=== PATIENT | female | born 1975 | race Caucasian/White ===

== ENCOUNTER 2018-01-03 16:59 | Emergency (ER) | payer OTHER ==
[2018-01-03 17:05] VITALS: BMI 32.5
--- NOTE | 2018-01-03 17:20 | ED PDOC ---
Arrival/HPI - General Chief Complaint: Shortness Of Breath Time Seen by Provider: 01/03/18 17:03 Historian: Patient - History of Present Illness Narrative History of Present Illness (Text): 01/03/18 17:21 42 yo F w/ PMH of DM and high cholesterol presents c/o intermittent L sided CP, described as a pressure sensation, which began 3 days ago while she was walking up the stairs associated with palpitations and dyspnea, reports that her symptoms lasted for 15 mins and then resolved on their own. She adds that the CP recurs with exertion, such as prolonged walking. She states that she called her pmd regarding her symptoms, was advised to go to the ER. Reports having a normal stress test and echo 4 years ago done in this hospital. Denies any fever, chills, URI, SOB, N/V, back pain, abdominal pain, radiation, syncope, dizziness, headache, leg pain/swelling, recent travel. PMD Eva Cardio none Past Medical History - Infectious Disease Hx of Infectious Diseases: None - Cardiac Hx Hypertension: Yes - Endocrine/Metabolic Hx Diabetes Mellitus Type 2: Yes - Psychiatric Hx Substance Use: No - Anesthesia Hx Anesthesia: No Family/Social History Family/Social History: Diabetes, CAD/HI Smoking Status: Never Smoked Hx Alcohol Use: No Hx Substance Use: No Allergies/Home Meds Allergies/Adverse Reactions: Allergies No Known Allergies Allergy (Verified 01/13/14 12:02) Home Medications: Home Meds Medication Instructions Recorded Confirmed Atorvastatin [Lipitor] 1 tab PO HS 01/03/18 01/03/18 Carisoprodol [Soma] 1 tab PO BID PRN 01/03/18 01/03/18 Cetirizine HCl [Zyrtec] 1 tab PO DAILY 01/03/18 01/03/18 DULoxetine [Cymbalta] 1 tab PO HS 01/03/18 01/03/18 Ergocalciferol [Drisdol 50,000 1 cap PO Q7D 01/03/18 01/03/18 Intl Units Cap] Fenofibrate [Tricor] 1 tab PO DAILY 01/03/18 01/03/18 Gemfibrozil [Lopid] 1 tab PO BID 01/03/18 01/03/18 Glimepiride [Amaryl] 1 tab PO BID 01/03/18 01/03/18 Metformin HCl [Glucophage] 1 tab PO BID 01/03/18 01/03/18 Pantoprazole Sodium [Protonix] 1 tab PO DAILY 01/03/18 01/03/18 Zolpidem [Ambien] 1 tab PO HS PRN 01/03/18 01/03/18 metFORMIN [glucOPHAGE] 1 tab PO DAILY 01/03/18 01/03/18 rOPINIRole [Requip] 1 tab PO DAILY 01/03/18 01/03/18 Review of Systems - Review of Systems Constitutional: absent: Fatigue, Weight Change, Fevers Respiratory: absent: SOB, Cough Cardiovascular: Chest Pain, Palpitations. absent: Edema, Syncope Gastrointestinal: absent: Abdominal Pain, Diarrhea, Vomiting Genitourinary Female: absent: Dysuria, Frequency, Hematuria Musculoskeletal: absent: Arthralgias, Back Pain Skin: absent: Rash, Pruritis, Skin Lesions Neurological: absent: Headache, Dizziness Physical Exam Appearance: Positive for: Well-Appearing, Non-Toxic, Comfortable Pain Distress: None Mental Status: Positive for: Alert and Oriented X 3 - Systems Exam Head: Present: Atraumatic, Normocephalic Pupils: Present: PERRL Extroacular Muscles: Present: EOMI Conjunctiva: Present: Normal Mouth: Present: Moist Mucous Membranes Neck: Present: Normal Range of Motion Respiratory/Chest: Present: Clear to Auscultation, Good Air Exchange. No: Respiratory Distress, Accessory Muscle Use Cardiovascular: Present: Regular Rate and Rhythm, Normal S1, S2. No: Murmurs Abdomen: No: Tenderness, Distention, Peritoneal Signs Back: Present: Normal Inspection Upper Extremity: Present: Normal Inspection. No: Cyanosis, Edema Lower Extremity: Present: Normal Inspection. No: Edema Neurological: Present: GCS=15, CN II-XII Intact, Speech Normal, Motor Func Grossly Intact, Normal Sensory Function Skin: Present: Warm, Dry, Normal Color. No: Rashes Psychiatric: Present: Alert, Oriented x 3, Normal Insight, Normal Concentration Medical Decision Making ED Course and Treatment: 01/03/18 17:18 Previous medical records reviewed : patient has had prior stress and echo done. Exercise stress test done on 01/2014 : poor exercise tolerance, no evidence of ishcemia. Dr. Aquilino Childs Echo done on 01/2014 : L ventricle normal size. Borderline mild L ventricular hypertrophy. L ventricular function is normal and EF is w/in normal range. Normal LV wall motion. Tissue doppler imaging reveals mild L ventricular diastolic dysfunction. Dr. Narinder Escobedo Plan : - IV - Labs - UA - EKG - CXR - color television console monitor - ASA PO Case d/w Dr. Velasquez, states that the is concerned of possible DVT/PE. EKG : NSR at 96 bpm, no acute ST changes. CXR : NAD. US doppler LLE : no DVT, as per US tech. On re-evaluation, patient reports no CP, SOB or leg pain. On exam, patient remains AAOx3, in no acute distress. VSS. Lab results reviewed : trop (-), bnp (-), d-dimer (-) Diagnostic results d/w the patient in great detail. Case d/w Dr. Velasquez in great detail, states that the patient is appropriate for outpatient follow up. Patient instructed to follow-up with pmd in 1-2 days without fail. Return to the emergency room at any time for any new or worsening symptoms. Patient states she fully agrees with and understands discharge instructions. States that she agrees with the plan and disposition. Verbalized and repeated discharge instructions and plan. I have given the patient opportunity to ask any additional questions. - RAD Interpretation Radiology Orders: 01/03/18 17:16 CHEST PORTABLE [RAD] Stat - Medication Orders Current Medication Orders: Aspirin (Aspirin) 325 mg PO STAT STA Stop: 01/03/18 17:16 - PA / [employer] / Resident Statement MD/DO has reviewed & agrees with the documentation as recorded. Disposition/Present on Arrival - Present on Arrival Any Indicators Present on Arrival: No History of DVT/PE: No History of Uncontrolled Diabetes: No Urinary Catheter: No History of Decub. Ulcer: No History Surgical Site Infection Following: None - Disposition Have Diagnosis and Disposition been Completed?: Yes Diagnosis: Chest pain Disposition: HOME/ ROUTINE Disposition Time: 21:00 Patient Plan: Discharge Condition: STABLE Discharge Instructions (ExitCare): Chest Pain (ED) Additional Instructions: Thank you for letting us take care of you today. You were treated for chest pain. The emergency medical care you received today was directed at your acute symptoms. Return to the Emergency Department if your symptoms worsen, do not improve, or if you have any other problems. Please contact your doctor in 2 days for re-evaluation and follow up. Bring any paperwork you were given at discharge with you along with any medications you are taking to your follow up visit. Our treatment cannot replace ongoing medical care by a primary care provider (PCP) outside of the emergency department. Thank you for allowing the [facility] team to be part of your care today. Referrals: Harrison Velasquez MD [Primary Care Provider] - Follow up with primary Forms: [employer] (Citizen [place]), WORK NOTE
[2018-01-03 17:27] VITALS: TEMP 98.8
[2018-01-03 18:49] LABS: BASO # 0.07 K/mm3 (0.0-2.0); BASO % 0.6 % (0.0-3.0); EOS # 0.2 (0.0-0.7); EOS % 1.9 % (1.5-5.0); GRAN # 5.35 (1.4-6.5); GRAN % 49.1 % (50.0-68.0); HEMOGLOBIN 13.4 g/dL (12.0-16.0); LYMPH # 4.9 (1.2-3.4); LYMPH % 44.8 % (22.0-35.0); MEAN CELL VOLUME 84.1 fl (80.0-105.0); MEAN CORPUSCULAR HEMOGLOBIN 28.8 pg (25.0-35.0); MEAN CORPUSCULAR HGB CONC 34.3 g/dl (31.0-37.0); MEAN PLATELET VOLUME 9.9 fl (7.0-11.0); MONO # 0.4 (0.1-0.6); MONO % 3.6 % (1.0-6.0); RBC 4.65 10^6/uL (3.5-6.1); RED CELL DISTRIBUTION WIDTH 12.9 % (11.5-14.5); WHITE BLOOD COUNT 10.9 10^3/ul (4.5-11.0)
[2018-01-03 18:52] LABS: ALB/GLOB RATIO 1.5 (1.1-1.8); ALBUMIN 4.5 g/dL (3.0-4.8); ALT/SGPT 34 U/L (7-56); AST/SGOT 35 U/L (14-36); BLOOD UREA NITROGEN 11 mg/dL (7-21); CALCIUM 9.3 mg/dL (8.4-10.5); GFR NON-AFRICAN AMERICAN > 60
[2018-01-03 18:54] LABS: INR 1.04; PARTIAL THROMBOPLASTIN TIME 26.3 Seconds (25.1-36.5); PROTHROMBIN TIME 11.9 SECONDS (9.4-12.5)
[2018-01-03 19:02] LABS: B-TYPE NATRIURETIC PEPTIDE 14.2 pg/mL (0-450); TROPONIN I < 0.01 ng/mL
[2018-01-03 19:57] LABS: URINE BILIRUBIN NEGATIVE (NEGATIVE); URINE BLOOD TRACE-LYSED (NEGATIVE); URINE GLUCOSE (UA) NEGATIVE (NEGATIVE); URINE LEUKOCYTE ESTERASE TRACE Leu/uL (NEGATIVE); URINE PROTEIN NEGATIVE mg/dL (<30 mg/dL); URINE UROBILINOGEN 0.2 E.U./dL (<1 E.U./dL)
[2018-01-03 20:08] LABS: URINE APPEARANCE CLEAR (CLEAR); URINE COLOR LIGHT YELLOW (YELLOW)
[2018-01-03 20:25] LABS: URINE BACTERIA MOD (NEG)
[2018-01-03 21:32] VITALS: BP 118/85; PULSE 90; RESP 16; O2SAT 96
--- NOTE | 2018-01-04 09:17 | US ---
PROCEDURE: Left lower extremity venous US HISTORY: Leg pain and swelling. Evaluate for DVT. PHYSICIAN(S): Aquilino Crowe MD. TECHNIQUE: Duplex sonography and color-flow Doppler with graded compression were used to evaluate the deep venous system of the left lower extremity. FINDINGS: The visualized deep venous system of the left lower extremity is sonographically normal and compressible. Normal wave forms and augmentation are seen. There is no sonographic evidence for deep venous thrombosis in the visualized segments of the left lower extremity. IMPRESSION: 1. No sonographic evidence for deep venous thrombosis in the visualized segments of the left lower extremity.
--- NOTE | 2018-01-04 09:24 | RAD ---
Date of service: 01/03/2018 HISTORY: CP COMPARISON: 04/23/2015. FINDINGS: LUNGS: The lungs are well inflated and clear. PLEURA: No pleural effusions or pneumothorax. CARDIOVASCULAR: The heart is normal in size. No aortic atherosclerotic calcification present. OSSEOUS STRUCTURES: Within normal limits for the patient's age. VISUALIZED UPPER ABDOMEN: Normal. OTHER FINDINGS: None. IMPRESSION: No active pulmonary disease.
--- NOTE | 2018-01-04 10:42 | CARD ---
APPROVED REPORT Date of service: 01/03/2018 EKG Measurement Heart [id number] <Conclusion> Normal sinus rhythm Normal ECG
== END 2018-01-03 21:31 | disposition home or self-care (01) ==
LOC: ED 16:59
DX: R07.9 Chest pain, unspecified (principal); I10 Essential (primary) hypertension; E11.9 Type 2 diabetes mellitus without complications; Z82.49 Family history of ischemic heart disease and other diseases of the circulatory system; Z83.3 Family history of diabetes mellitus